=== PATIENT | male | born 1960 | race Caucasian/White ===

== ENCOUNTER 2023-09-14 09:16 | Outpatient (AMB) | payer OTHER, SELFPAY ==
[2023-09-14 09:19] VITALS: BP 172/74; PULSE 52; O2SAT 98; BMI 51.9
--- NOTE | 2023-09-14 09:19 | A.OFFPC_ITS ---
Vital Signs 09/14/23 09:19 Height 6 ft 2 in Weight 183.251 kg BMI 51.9 BP 172/74 H Blood Pressure Location Lt brachial Position Sitting Pulse 52 Pulse Source Pulse Oximeter Pulse Oximetry (%) 98 Oxygen Delivery Method Room Air Intake Visit Reasons: [facility] 08/22-08/23 Linen Room Worker Required: No X Ray Technologist: Not Required per policy Accompanied by: Self / Same As Patient Allergies Penicillins Allergy (Mild, Verified 09/14/23 09:19) Anaphylaxis Tobacco use date assessed: 09/14/23 Fall risk assessment: 1 Fall in past year Last assessed Fall Risk: 09/14/23 Dental Screening Dental Screen Date: 09/14/23 Did you have a dental visit in the last 12 months?: No Did you have a dental problem in the last 6 months where you did not have access to dental care?: No Was dental information given to patient?: Patient has dentist HPI HPI Comments History of Present Illness Details 63-year-old male with history of hyperte nsion, chronic atrial fibrillation, obstructive sleep apnea, history of stroke, morbid obesity, and history of prediabetes presents to the office today for hospital discharge follow-up. The patient was admitted to [facility] from 08/22-08/23 due to TIA. Despite multiple comorbidities, the patient had been noncompliant for some time with all of his medications including his anticoagulation and antihypertensives. While driving, the patient had an episode where he states he did not feel himself. He noted slurred speech and numbness in the bilateral upper extremities so he called EMS. On arrival to the hospital, [place] stroke scale score was 0 and symptoms had fully resolved. There are no focal neuro deficits but he was observed overnight. Head CTA/CT did not reveal any acute intracranial abnormality. There was no hemodynamically significant stenosis of the carotids or other vertebral arteries though right vertebral artery was poorly visualized. 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 No LVO. Unfortunately given size, MRI was unable to be performed. Further stroke testing defered to outpt. The patient was started on xarelto for anticoagulation and blood pressure was optimized by adding metoprolol to lisinopril given history of afib. NOt felt to require outpt pt/speech services given resolution of symptoms. Labs were significant for LDL 113, aotrvastatin 80mg daily added. A1c also elevated at 6.9%, consistent with new onset type 2 diabetes. Today the patient reports compliance with all medications. He has no complaints. [facility] Medical History (Updated 09/20/23 @ 21:13 by NUBIA Domingo) Hyperlipidemia Obstructive sleep apnea Type 2 diabetes mellitus Morbid obesity CVA (cerebral vascular accident) Afib Spontaneous pneumothorax Right wrist injury HTN (hypertension) Family History Father Aortic aneurysm Brother Congenital heart disease Mother Multiple sclerosis Brother Multiple sclerosis Social History Housing: Apartment Alcohol intake: current Alcohol intake frequency: holidays/special occasions only Patient Tobacco Use Status: Never used Tobacco Tobacco use type: Cigarette e-Cigarette/Vaping Use: Never Used Second Hand Smoke Exposure: No service: No Current occupational status: employed Cognitive needs: No Hearing needs: No Vision needs: Yes Questionnaire PHQ-9 Over the last 2 weeks, how often have you been bothered by any of the following problems? 1. Little interest or pleasure in doing things: not at all 2. Feeling down, depressed, or hopeless: not at all 3. Trouble falling or staying asleep, or sleeping too much: not at all 4. Feeling tired or having little energy: not at all 5. Poor appetite or overeating: not at all 6. Feeling bad about yourself - or that you are a failure or have let yourself or your family down: not at all 7. Trouble concentrating on things, such as reading the newspaper or watching television: not at all 8. Moving or speaking so slowly that other people could have noticed. Or the opposite - being so fidgety or restless that you have been moving around a lot more than usual: not at all 9. Thoughts that you would be better off or of hurting yourself in some way: not at all Total score: 0 Depression Screening Interpretation: Negative Depression Screening Done: Yes Source: Developed by Drs. Fareed Loya, Cindy Fuller, Daniel Yuen and colleagues, with an educational bandar from [employer]. Thrive Questionnaire Date Thrive assessed: 09/14/23 I am a: Patient What is your living situation today?: I have a steady place to live Within the past 12 months, did the food you bought not last and you didn't have the money to get more?: Never true Within the past 12 months, did you worry whether your food would run out before you got money to buy more?: Never true Do you have trouble paying for medicines?: No Do you have trouble getting transportation to medical appointments?: No Do you have trouble paying your heating and electricity bill?: No Do you have trouble taking care of your child, family member or friend?: No Do you have trouble with day-to-day activities such as bathing, preparing meals, shopping, managing finances, etc.?: No Are you currently unemployed and looking for a job?: No Are you interested in more education?: No Please select the resources that you would like help with: None AUDIT C Alcohol Use Questionnaire (AUDIT-C) 1. How often do you have a drink containing alcohol?: Never Total Score: 0 DONNA-7 AMB Questionnaire DONNA-7 Date DONNA - 7 assessed: 09/14/23 Feeling nervous, anxious, or on edge: 0 = Not at all Not being able to stop or control worryin = Not at all Worrying too much about different things: 0 = Not at all Trouble relaxin = Not at all Being so restless that it is hard to sit still: 0 = Not at all Becoming easily annoyed or irritable: 0 = Not at all Feeling afraid as if something awful might happen: 0 = Not at all Total DONNA-7 score (0-4 normal; 5-9 mild; 10-14 moderate; 15-21 severe): 0 Source: Developed by Drs. Fareed Loya, Cindy Fuller, Daniel Yuen and colleagues, with an educational bandar from [employer]. Review of Systems Const All systems reviewed & are unremarkable except as noted in HPI and below Physical exam (Primary Care) Vital Signs: Last Vital Signs Pulse 52 09/14/23 09:19 BP 172/74 H 09/14/23 09:19 Pulse Ox 98 09/14/23 09:19 Oxygen Delivery Method Room Air 09/14/23 09:19 BMI result Body Mass Index 51.9 Tobacco/Smoking Status: Tobacco use Status Tobacco use date assessed 09/14/23 09/14/23 09:21 Patient Tobacco Use Status Never used Tobacco 09/14/23 09:21 Tobacco use type Cigarette 09/14/23 09:21 e-Cigarette/Vaping Use Never Used 09/14/23 09:21 PHQ-9: PHQ-9 Score PHQ-9: Total score 0 09/14/23 09:45 Depression Screening Interpretation: Negative Thrive Assessment: Date of Thrive Assessment Date Thrive assessed 09/14/23 09/14/23 09:21 Const Other: Constitutional - Awake and Alert, No apparent distress Eyes - PERRLA, EOMI Cardiovascular - S1S2, RRR, No edema Respiratory - Normal lung expansion, Normal respiratory effort, No respiratory distress, CTA bilaterally Extremities - no calf tenderness bilaterally, no swelling Skin - Warm/Dry Neurological - Alert & oriented x3, CN II-XII in tact, 5/5 strength BUE and BLE Psychological - Appropriate affect Results Reviewed Results Reviewed: cbc, bmp, trop, a1c, ekg, ct head, cta head/neck, h&p, discharge summary Assessment and Plan Assessment & Plan (1) Afib: Code(s): I48.91 - Unspecified atrial fibrillation Plan: Rate controlled. [id number] score 4. Advised to continue xarelto to help prevent recurrent stroke. Continue metoprolol for rate control and blood pressure management. Echocardiogram is ordered and he is referred back to cardiology to reestablish care. (2) CVA (cerebral vascular accident): Comment: [facility] on 07/2021. TIA 08/2023 Code(s): I63.9 - Cerebral infarction, unspecified Plan: CT head negative. CTA head/neck negative for any hemodynamically significant stenosis or large vessel occlusion. No sequelae. Discussed the importance of managing stroke risk factors including compliance with anticoagulation given history of atrial fibrillation, better blood pressure control, glucose control given new onset type 2 diabetes, and compliance with CPAP given history of obstructive sleep apnea. Continue atorvastatin 80mg daily and xarelto. Declined MRI (3) Type 2 diabetes mellitus: Code(s): E11.9 - Type 2 diabetes mellitus without complications Plan: Newly diagnosed while at [facility] with A1c 6.9%. Dicussed diabetes is currently controlled with goal A1c <7.0%. However, lifestyle modifications strongly recommended including compliance with diabetic diet and weight loss efforts with increased exercise. Recommend checking fasting glucose daily with goal being 90-130. Continue metformin 500 mg b.i.d.. Will also refer to [facility] for further assistance with new onset diabetes. Annual eye exams and foot exams, deferred to PCP. (4) Morbid obesity: Code(s): E66.01 - Morbid (severe) obesity due to excess calories Plan: BMI greater than 51. Discussed the importance of lifestyle modification to f acilitate weight loss. Recommend diet lower in calories including simple carbohydrates, and healthy fats as well as increased exercise. (5) HTN (hypertension): Code(s): I10 - Essential (primary) hypertension Plan: Blood pressure uncontrolled in the office today. Will increase lisinopril to 20 mg daily and he should continue Toprol 25 mg daily. Home blood pressure monitor is ordered and he is advised to check his blood pressure with goal being less than 140/90. Blood pressure is remain elevated, contact PCP. Follow low-sodium diet. (6) Obstructive sleep apnea: Code(s): G47.33 - Obstructive sleep apnea (adult) (pediatric) Plan: Previously diagnosed on sleep study years ago. Will update diagnostic sleep study. Discussed the importance of compliance with CPAP usage to prevent stroke as well as other comorbidities. Also again discussed the importance of weight loss. (7) Hyperlipidemia: Code(s): E78.5 - Hyperlipidemia, unspecified Plan: LDL at [facility] 113, goal less than 70. Continue atorvastatin 80 mg daily. Plan Follow-up with PCP in 2 months for follow-up labs to check on diabetes and hyperlipidemia. Orders: Orders RT home sleep study 09/14/23 E66.01 - Morbid (severe) obesity due to excess calories, I48.91 - Unspecified atrial fibrillation CA echo transthoracic complete Today I63.9 - Cerebral infarction, unspecified Referrals Cardiology Referral I48.91 - Unspecified atrial fibrillation, I63.9 - Cerebral infarction, unspecified Medications: New metoprolol succinate ER 25 mg PO DAILY 90 tabs 1RF blood pressure test kit-large ([facility] Blood Pressure Monitor kit) As directed 1 ea 0RF rivaroxaban (Xarelto) 10 mg PO Q24H 90 tabs 1RF lisinopril 20 mg PO DAILY 90 tabs 1RF Refilled atorvastatin 80 mg PO DAILY 90 tabs 1RF metformin ER 500 mg PO BID 90 tabs 1RF Coding Level of Care Code Est Pt Level 5 (57912) Diagnoses Afib I48.91 CVA (cerebral vascular accident) I63.9 Type 2 diabetes mellitus E11.9 Morbid obesity E66.01 HTN (hypertension) I10 Obstructive sleep apnea G47.33 Hyperlipidemia E78.5 Time Spent (min) 50 Comment reviewed results as above, time spent with pt/counseling, documentation
== END 2023-09-14 10:08 | disposition home or self-care (01) ==
PROVIDERS: PCP Internal Medicine; Visit Provider Physician Assistant
DX: I48.91 Unspecified atrial fibrillation (principal); Z86.73 Personal history of transient ischemic attack (TIA), and cerebral infarction without residual deficits; E11.9 Type 2 diabetes mellitus without complications; I10 Essential (primary) hypertension; G47.33 Obstructive sleep apnea (adult) (pediatric); E78.5 Hyperlipidemia, unspecified
CPT/HCPCS: 99215